=== PATIENT | male | born 1995 | race Two or more races ===

== ENCOUNTER 2020-12-28 00:04 | Emergency (ER) | payer MEDICAID, OTHER ==
[~2020-12-28] VITALS: Ht 170.2 cm; Wt 72.6 kg
[2020-12-28 00:04] VITALS: BP 120/96
== END 2020-12-28 00:30 | disposition left against medical advice (07) ==
LOC: EEVIPCON 00:05 → ER 00:05
DX: Z04.3 Encounter for examination and observation following other accident (principal); Z53.21 Procedure and treatment not carried out due to patient leaving prior to being seen by health care provider; V89.2XXA Person injured in unspecified motor-vehicle accident, traffic, initial encounter; Y93.89 Activity, other specified; Y92.89 Other specified places as the place of occurrence of the external cause; Y99.8 Other external cause status